=== PATIENT | female | born 1940 | race Caucasian/White ===

== ENCOUNTER → 2017-04-07 | Day surgery (SDC) | payer MEDICARE ==
[~2017-04-07] VITALS: Ht 157.4 cm; Wt 77.1 kg
[~2017-04-07] MED LIST: ASPIRIN ADULT L81 M2 PO; ATIVAN0.5 MG PO; BENZONATATE100 M1 PO; CIPRO500 MG PO; DEXILANT60 M1 PO; DUONEB 3 MG/3 ML3 M1 NEB; FLAGYL500 MG PO; FLUOXETINE HYDR20 M1 PO; GLYCOLAX17 GM/DOSE PO; LEVAQUIN750 M1 PO; LEVOTHYROXIN0.088 M1 PO; LOPRESSOR25 MG PO; MEDROL DOSEPAK4 MG PO; METOPROLOL25 MG PO; MUCINEX ER600 MG PO; NEXIUM40 MG/PACK PO; OMEPRAZOLE20 M2 PO; OMEPRAZOLE20 MG; PRAVACHOL80 M1 PO; PRILOSEC40 M1 PO; QUESTRAN POWDE378 GM PO; SYNTHROID0.1 MG PO; SYNTHROID0.175 MG PO; ULTRAM50 MG PO
[2017-04-07 08:25] VITALS: BP 171/70
[2017-04-07 08:57] VITALS: BP 111/62
[2017-04-07 09:12] VITALS: BP 104/62
[2017-04-07 09:27] VITALS: BP 123/69
== END | disposition home or self-care (01) ==
LOC: SDC 03-09 12:30
DX: K29.50 Unspecified chronic gastritis without bleeding (principal); K22.10 Ulcer of esophagus without bleeding; K25.9 Gastric ulcer, unspecified as acute or chronic, without hemorrhage or perforation; K29.80 Duodenitis without bleeding; K26.9 Duodenal ulcer, unspecified as acute or chronic, without hemorrhage or perforation; K21.0 Gastro-esophageal reflux disease with esophagitis; F32.9 Major depressive disorder, single episode, unspecified; I25.2 Old myocardial infarction; E89.0 Postprocedural hypothyroidism; F41.9 Anxiety disorder, unspecified; K57.30 Diverticulosis of large intestine without perforation or abscess without bleeding; Z85.850 Personal history of malignant neoplasm of thyroid; Z90.49 Acquired absence of other specified parts of digestive tract; Z98.890 Other specified postprocedural states; Z82.49 Family history of ischemic heart disease and other diseases of the circulatory system; Z85.038 Personal history of other malignant neoplasm of large intestine

== ENCOUNTER → 2018-01-26 | Day surgery (SDC) | payer MEDICARE ==
[~2018-01-26] VITALS: Ht 158.4 cm; Wt 81.6 kg
[~2018-01-26] MED LIST changes: +PROZAC10 MG PO; +TOPROL XL25 MG PO
--- NOTE | ~2018-01-26 | O ---
[place], [place] OPERATIVE NOTE NAME: ANTHONY BARTHOLOMEW Earline UNIT #: [id number] ROOM: DOCTOR: FAWAD MCKEON MD BIRTHDATE: [birth year] DOS: 01/26/2018 INDICATIONS: This is a 77-year-old patient who presented with a history of dyspepsia. The patient has been on omeprazole. ALLERGIES: No known medication. PAST MEDICAL: Personal history of colonic CA. FAMILY HISTORY: Associated with brother with colonic CA. PAST SURGICAL HISTORY: Hysterectomy and cholecystectomy. SOCIAL HISTORY: Nonsmoker, nonalcohol consumer. PROCEDURE: Today's procedure part of investigation is panendoscopy plus biopsy. PREMEDICATION: Versed and propofol. SCOPE: Olympus forward-viewing gastroscope Q10 video. REPORT: After putting the patient in left lateral position and application of lubricant to the scope, the scope was introduced. Thereafter, under direct visualization, I advanced the length of esophagus without difficulty. Hiatal hernia approximately 2.5 cm was identified. Gastric pouch was entered. Gastritis seen. Duodenal bulb, second and third part within normal limit. The patient extubated, and tolerated the procedure well. IMPRESSION: Gastritis, hiatal hernia. Ruling out Helicobacter pylori. PLAN AND DISCUSSION: Omeprazole 20 mg every day, antireflux measures, elevation of the head of the bed 6 inch all the time. Gaviscon as antacid of choice particularly at bedtime, continuation with omeprazole 20 mg daily and follow up in the office for biopsy. [place], [place] OPERATIVE NOTE NAME: FLORIDAANTHONY M UNIT #: [id number] ROOM: DOCTOR: FAWAD MCKEON MD BIRTHDATE: [birth year] FAWAD MCKEON MD CM:OPRECORD:OPERATIVE NOTE [id number] FAWAD MCKEON MD 01/26/18 1318 interface
[2018-01-26 09:50] VITALS: BP 164/74
[2018-01-26 10:57] VITALS: BP 124/51
[2018-01-26 11:08] VITALS: BP 129/48
[2018-01-26 11:21] VITALS: BP 135/54
== END | disposition home or self-care (01) ==
LOC: SDC 01-21 09:30
DX: K29.50 Unspecified chronic gastritis without bleeding (principal); Z90.49 Acquired absence of other specified parts of digestive tract; Z90.710 Acquired absence of both cervix and uterus; Z85.038 Personal history of other malignant neoplasm of large intestine; K44.9 Diaphragmatic hernia without obstruction or gangrene; Z80.0 Family history of malignant neoplasm of digestive organs; Z79.899 Other long term (current) drug therapy; I25.2 Old myocardial infarction; K21.9 Gastro-esophageal reflux disease without esophagitis; F32.9 Major depressive disorder, single episode, unspecified; E07.89 Other specified disorders of thyroid; I25.10 Atherosclerotic heart disease of native coronary artery without angina pectoris

== ENCOUNTER → 2018-06-09 | Outpatient (CLI) | payer MEDICARE | END | disposition home or self-care (01) | LOC: MRI 08:31 | DX: S83.272A Complex tear of lateral meniscus, current injury, left knee, initial encounter (principal); M17.12 Unilateral primary osteoarthritis, left knee; X58.XXXA Exposure to other specified factors, initial encounter; Y93.89 Activity, other specified; Y92.89 Other specified places as the place of occurrence of the external cause; Y99.8 Other external cause status ==

== ENCOUNTER 2018-10-11 12:43 | Inpatient (IN) | payer MEDICARE ==
[2018-10-11] VITALS (7 sets, daily range): BP systolic 110–165; BP diastolic 44–90
[~2018-10-11] VITALS: Ht 157.5 cm; Wt 83.9 kg
--- NOTE | ~2018-10-11 | EKG ---
[place], [place] ELECTROCARDIOGRAM REPORT NAME: ANTHONY BARTHOLOMEW UNIT #: [id number] ROOM: 522 DOCTOR: CHIP DRAFT REPORT BIRTHDATE: [birth year] [facility] Test Date: 2018-10-11 Test Time: 14:56:26 Pat Name: ANTHONY BARTHOLOMEW Department: Room: 522 Gender: [facility] Professor: EKG.LA : 1940 Requested By: YOLANDA CHAVIS Order Number: [id number] Reading MD: Renetta Daigle MD Measurements Intervals [place] Rate: 79 P: 17 OK: 178 QRS: 33 QRSD: 86 T: 29 QT: 398 QTc: 457 Interpretive Statements Sinus rhythm Borderline low voltage, extremity leads Electronically Signed On 10-12-2018 9:34:06 PST by Renetta Daigle MD CM:EKGRPT:ELECTROCARDIOGRAM REPORT [id number] YOLANDA COHEN DRAFT REPORT YOLANDA CHAVIS DO
[2018-10-11 13:24] LABS: BASO % 0.5 % (0.0-1.0); EOS # 0.2 10*3/uL (0.0-0.4); EOS % 2.3 % (1.0-4.0); HEMATOCRIT 45.9 % (37.0-47.0); HEMOGLOBIN 14.7 g/dl (12.0-16.0); LYMPH # 1.9 10*3/uL (1.3-4.4); LYMPH % 29.1 % (27.0-41.0); MEAN CELL VOLUME 90.9 fl (81.0-99.0); MEAN CORPUSCULAR HGB 29.1 pg (27.0-31.0); MEAN PLATELET VOLUME 10.4 fl (9.6-12.3); MONO # 0.6 10*3/uL (0.1-1.0); MONO % 8.9 % (3.0-9.0); NEUT # 3.8 10*3/uL (2.3-7.9); NEUT % 58.6 % (47.0-73.0); PLATELET COUNT AUTOMATED 235 10*3/uL (130-400); RED BLOOD COUNT 5.05 10*6/uL (4.10-5.10); WHITE BLOOD COUNT 6.5 10*3/uL (4.8-10.8)
[2018-10-11 13:33] LABS: ACT PARTIAL THROMBO TIME 22.1 SECONDS (20.8-31.5)
[2018-10-11 13:39] LABS: ALBUMIN 3.5 gm/dl (3.1-4.5); ALKALINE PHOSPHATASE 101 U/L (45-117); BUN 11 mg/dl (7-24); CHLORIDE 107 mmol/L (98-107); CREATININE 0.83 mg/dL (0.55-1.02); LIPASE 199 U/L (73-393); POTASSIUM 4.3 mmol/L (3.5-5.1); SGOT/AST 20 IU/L (3-35); SGPT/ALT 23 U/L (12-78); SODIUM 141 mmol/L (136-145)
[2018-10-11 13:41] LABS: TROPONIN I < 0.015 ng/ml (<0.045)
[2018-10-11 14:15] LABS: BILIRUBIN NEGATIVE (NEGATIVE); BLOOD TRACE-INTACT (NEGATIVE); CLARITY CLEAR (CLEAR); COLOR YELLOW (YELLOW); GLUCOSE NEGATIVE (NEGATIVE); KETONE NEGATIVE (NEGATIVE); LEUKO ESTERASE NEGATIVE (NEGATIVE); NITRITE NEGATIVE (NEGATIVE); PH 5.5 (5.0-9.0); UROBILINOGEN 0.2 E.U./dl (0.2-1.0)
[2018-10-11 14:26] LABS: BACTERIA 1+; EPITHELIAL CELLS 0-2; RBC 0-2 rbc/hpf (0-2)
--- NOTE | 2018-10-11 15:36 | NUR ---
NOTFIED BY LAB PTS LACTIC IS 2.4. DR CHAVIS NOTIFIED.
--- NOTE | 2018-10-11 16:40 | NUR ---
A 78, admitted to 5E, under the services of RUIZ Alvarez DO with a diagnosis of VERTIGO, UNSTEADY GAIT . Chief complaint is DIZZINESS. Patient arrived via from ER. Monitor applied. Initial assessment completed. Vital signs taken and recorded. RUIZ ALVAREZ DO notified of admission to the unit. Orders received. See assessment for past medical history, medications and allergies. Patient and/or family oriented to unit. [facility] visitation policy reviewed. Clothing/patient valuable form completed. LOLLY LEES
[2018-10-11] MEDS ORDERED: Lopressor25 MG PO (18:01)
--- NOTE | 2018-10-11 18:01 | NUR ---
HOME MEDS VERIFIED WITH PT AND [facility] MOORE
--- NOTE | 2018-10-11 18:40 | NUR ---
DR WOLFF NOTIFIED OF CRITICAL LACTIC ACID
[2018-10-12] VITALS: BP 121/52
--- NOTE | 2018-10-12 05:31 | NUR ---
PATIENT HAS GOTTEN UP TWICE THROUGHOUT THE NIGHT TO GO TO THE BATHROOM AND HAS NOT BEEN DIZZY EITHER TIME PATIENT IS HOWEVER A BIT UNSTEADY ON HER FEET NEEDING TO HOLD ON TO THE DOOR AND WALL WHEN WALKING.
[2018-10-12 07:15] LABS: BASO % 0.5 % (0.0-1.0); EOS # 0.1 10*3/uL (0.0-0.4); EOS % 2.4 % (1.0-4.0); HEMATOCRIT 41.4 % (37.0-47.0); HEMOGLOBIN 13.1 g/dl (12.0-16.0); LYMPH # 1.8 10*3/uL (1.3-4.4); LYMPH % 31.3 % (27.0-41.0); MEAN CELL VOLUME 90.8 fl (81.0-99.0); MEAN CORPUSCULAR HGB 28.7 pg (27.0-31.0); MEAN CORPUSCULAR HGB CONC 31.6 g/dl (33.0-37.0); MEAN PLATELET VOLUME 10.7 fl (9.6-12.3); MONO # 0.6 10*3/uL (0.1-1.0); MONO % 10.1 % (3.0-9.0); NEUT # 3.2 10*3/uL (2.3-7.9); NEUT % 55.4 % (47.0-73.0); PLATELET COUNT AUTOMATED 203 10*3/uL (130-400); RED BLOOD COUNT 4.56 10*6/uL (4.10-5.10); RED CELL DISTRI WIDTH 13.9 % (0-14.5); WHITE BLOOD COUNT 5.8 10*3/uL (4.8-10.8)
[2018-10-12 07:32] LABS: ALBUMIN 2.8 gm/dl (3.1-4.5); BUN 10 mg/dl (7-24); CHLORIDE 109 mmol/L (98-107); HDL CHOLESTEROL 36 mg/dl (40-60); POTASSIUM 4.3 mmol/L (3.5-5.1); SODIUM 143 mmol/L (136-145)
[2018-10-12 07:41] LABS: ALKALINE PHOSPHATASE 81 U/L (45-117); CHOLESTEROL 184 mg/dL (<200); CREATININE 0.77 mg/dL (0.55-1.02); FREE T4 1.27 ng/dl (0.76-1.46); LDL CHOLESTEROL 94 mg/dL (9-159); PHOSPHOROUS 2.5 mg/dL (2.5-4.9); SGOT/AST 18 IU/L (3-35); SGPT/ALT 20 U/L (12-78); TOTAL PROTEIN 5.9 gm/dL (6.4-8.2); TRIGLYCERIDES 272 mg/dl (<150); VLDL CHOLESTEROL 54 mg/dL (6-40)
[2018-10-12 08:19] LABS: VITAMIN D, 25-HYDROXY 28.2 ng/mL (30-100)
--- NOTE | 2018-10-12 08:40 | NUR ---
PHYSICAL THERAPY Patient evaluated on 5, full evaluation to follow. Continue with PT as per plan of care with fall, unsteady and acute debility precautions. Recommend SNF if willing. PAtient with moderate complexity via chart review, tests and evaluation: [id number]. Thank you for this referral. Lisa Ramirez,PT
--- NOTE | 2018-10-12 09:03 | NUR ---
Occupational Therapy evaluation completed on 5 with full eval to follow. Precautions include fall risk; holds onto furniture, etc when ambulating with wide base of support,IV UE, has a cane but does not use at home. Patient is low complexity level 56932 via chart review, testing and eval. Recommend OT per POC and SNF to enable safe, independent ADls, functional mobility and IADLs for return home alone. Thank you for this referral. Britney López OTr/L
[2018-10-12 12:00] VITALS: BP 131/46
--- NOTE | 2018-10-12 13:43 | NUR ---
[employer] in to talk to patient. Patient states lives at HOME with ALONE. There are 4 steps in the home. Physician: ALISHA Pharmacy: [facility] Home health services: NONE Patient's level of ADLs: INDEPENDENT Patient has working utilities: YES DME: NONE Follow-up physician's appointment after d/c: WILL BE MADE BY HOSPITALIST NURSE DIRECTOR ON DISCHARGE Does patient want to access PORTAL?: NO Discharge plan PT STATES SHE LIVES HOME ALONE AND IS INDEPENDENT IN CARE. SHE IS ABLE TO DRIVE TO GET WHAT SHE NEEDS. DENIES ANY NEEDS AT HOME AFTER DISCHARGE. WILL CONTINUE TO FOLLOW.. NERI SHETH
[2018-10-12] MEDS ORDERED: MECLIZINE HCL25 M2 PO (13:50)
--- NOTE | 2018-10-12 14:55 | NUR ---
DISCHARGE INSTRUCTIONS REVIEWED. [place] DISCONTINUED. PAGED FOR WHEELCHAIR FOR DISCHARGE.
--- NOTE | 2018-10-12 15:00 | NUR ---
PT TRANSPORTED OUT VIA WHEELCHAIR BY THE PA. SISTER TO TRANSPORT.
--- NOTE | 2018-10-12 15:00 | NUR ---
BACK TO ROOM TO TALK WITH PT. SHE AGREES TO HOME HEALTH NOW. REFERRAL FAXED TO [facility] PER PT CHOICE.
== END 2018-10-12 15:00 | disposition home health service (06) | DRG 149 ==
LOC: ED 12:43 → 5E 15:22 → EDHOLD 15:22 → 5E 16:10
PROVIDERS: Emergency Medicine; Internal Medicine; ADMIT Internal Medicine
DX: R42 Dizziness and giddiness (principal); E87.2 Acidosis; I50.32 Chronic diastolic (congestive) heart failure; R26.81 Unsteadiness on feet; K21.9 Gastro-esophageal reflux disease without esophagitis; I51.7 Cardiomegaly; E89.0 Postprocedural hypothyroidism; F41.9 Anxiety disorder, unspecified; R79.82 Elevated C-reactive protein (CRP); I25.2 Old myocardial infarction; Z85.038 Personal history of other malignant neoplasm of large intestine; Z85.828 Personal history of other malignant neoplasm of skin; Z98.42 Cataract extraction status, left eye; Z98.41 Cataract extraction status, right eye; Z90.49 Acquired absence of other specified parts of digestive tract; Z90.710 Acquired absence of both cervix and uterus; Z82.5 Family history of asthma and other chronic lower respiratory diseases; Z82.49 Family history of ischemic heart disease and other diseases of the circulatory system; Z82.0 Family history of epilepsy and other diseases of the nervous system; Z79.82 Long term (current) use of aspirin; Z79.899 Other long term (current) drug therapy

== ENCOUNTER → 2019-12-01 | Day surgery (SDC) | payer MEDICARE ==
[~2019-12-01] VITALS: Ht 157.4 cm; Wt 83.5 kg
[~2019-12-01] MED LIST changes: +Lopressor25 MG PO; +MECLIZINE HCL25 M2 PO; +PROTONIX40 MG PO
[2019-12-01 11:40] VITALS: BP 129/78
[2019-12-01 12:18] VITALS: BP 138/69
[2019-12-01 12:48] VITALS: BP 113/74
== END | disposition home or self-care (01) ==
LOC: SDC 11-28 13:15
DX: K29.50 Unspecified chronic gastritis without bleeding (principal); K44.9 Diaphragmatic hernia without obstruction or gangrene; K22.10 Ulcer of esophagus without bleeding; I10 Essential (primary) hypertension; K21.9 Gastro-esophageal reflux disease without esophagitis; F41.9 Anxiety disorder, unspecified; F32.9 Major depressive disorder, single episode, unspecified; I25.2 Old myocardial infarction; E66.9 Obesity, unspecified; Z68.33 Body mass index [BMI] 33.0-33.9, adult; Z98.890 Other specified postprocedural states; Z85.038 Personal history of other malignant neoplasm of large intestine; Z82.5 Family history of asthma and other chronic lower respiratory diseases

== ENCOUNTER → 2020-07-15 | Outpatient (CLI) | payer MEDICARE | LOC: COVID19 01:41 | PROVIDERS: ATTEND Internal Medicine Gastroenterology | DX: Z20.828 Contact with and (suspected) exposure to other viral communicable diseases (principal) ==

== ENCOUNTER → 2020-07-19 | Day surgery (SDC) | payer MEDICARE ==
[~2020-07-19] VITALS: Ht 157.4 cm; Wt 83.9 kg
[2020-07-19 08:33] VITALS: BP 157/62
[2020-07-19 09:30] VITALS: BP 120/55
[2020-07-19 09:44] VITALS: BP 124/57
[2020-07-19 10:00] VITALS: BP 132/59
== END | disposition home or self-care (01) ==
LOC: SDC 07-15 10:15
PROVIDERS: ATTEND Internal Medicine Gastroenterology
DX: Z09 Encounter for follow-up examination after completed treatment for conditions other than malignant neoplasm (principal); K64.0 First degree hemorrhoids; K57.30 Diverticulosis of large intestine without perforation or abscess without bleeding; I10 Essential (primary) hypertension; F41.9 Anxiety disorder, unspecified; F32.9 Major depressive disorder, single episode, unspecified; Z98.890 Other specified postprocedural states; Z79.899 Other long term (current) drug therapy

== ENCOUNTER 2023-01-03 08:13 | Emergency (ER) | payer MEDICARE ==
[~2023-01-03] VITALS: Ht 157.4 cm; Wt 83.9 kg
[2023-01-03 08:15] VITALS: BP 126/58
[2023-01-03 08:26] LABS: BILIRUBIN Negative (Negative); BLOOD Negative (Negative); CLARITY Clear (Clear); COLOR Yellow (Yellow); GLUCOSE Negative (Negative); KETONE Negative (Negative); LEUKO ESTERASE 1+ (Negative); NITRITE Negative (Negative); PH 5.5 (4.5-8.0)
[2023-01-03 08:52] LABS: BASO % 0.2 % (0.0-1.0); EOS # 0.1 10*3/uL (0.0-0.4); EOS % 0.5 % (1.0-4.0); HEMATOCRIT 45.8 % (37.0-47.0); LYMPH # 1.1 10*3/uL (1.3-4.4); LYMPH % 11.8 % (27.0-41.0); MEAN CELL VOLUME 92.2 fl (81.0-99.0); MEAN CORPUSCULAR HGB CONC 32.5 g/dl (33.0-37.0); MEAN PLATELET VOLUME 10.8 fl (9.6-12.3); MONO # 0.6 10*3/uL (0.1-1.0); MONO % 6.9 % (3.0-9.0); NEUT # 7.5 10*3/uL (2.3-7.9); NEUT % 80.4 % (47.0-73.0); PLATELET COUNT AUTOMATED 205 10*3/uL (130-400); RED BLOOD COUNT 4.97 10*6/uL (4.10-5.10); RED CELL DISTRI WIDTH 13.4 % (0-14.5); WHITE BLOOD COUNT 9.3 10*3/uL (4.8-10.8)
[2023-01-03 09:04] LABS: BACTERIA 2+; CALCIUM OXALATE CRYSTALS 3+; MUCOUS 2+
[2023-01-03 09:07] LABS: ALKALINE PHOSPHATASE 85 U/L (46-116); BUN 13 mg/dl (9-23); CHLORIDE 107 mmol/L (98-107); POTASSIUM 3.8 mmol/L (3.4-5.1); SGPT/ALT 26 U/L (10-49); TOTAL PROTEIN 6.5 gm/dL (6.0-8.0)
[2023-01-03] MEDS ORDERED: OMNICEF300 MG PO (09:52)
== END 2023-01-03 09:57 | disposition home or self-care (01) ==
LOC: ED 08:13
PROVIDERS: Internal Medicine
DX: N39.0 Urinary tract infection, site not specified (principal); K21.9 Gastro-esophageal reflux disease without esophagitis; F41.9 Anxiety disorder, unspecified; F32.A Depression, unspecified; I25.2 Old myocardial infarction; Z90.710 Acquired absence of both cervix and uterus; Z90.49 Acquired absence of other specified parts of digestive tract; Z98.890 Other specified postprocedural states; Z98.42 Cataract extraction status, left eye; Z98.41 Cataract extraction status, right eye